=== PATIENT | female | born 1970 | race Two or more races ===

== ENCOUNTER → 2018-09-30 06:22 | Outpatient (CLI) | payer MEDICARE, MEDICAID, SELFPAY ==
[2018-09-30 06:44] LABS: Color, Urine Amber (Yellow); Glucose, Dipstick Normal (Normal); Ketone-Dipstick 5 mg/dl (Negative); Leukocyte Esterase-Dipstick 500 /ul (Negative); Nitrite-Dipstick Negative (Negative); Occult Blood-Urine 250 /ul (Negative); Protein-Dipstick 100 mg/dl (Negative); Specific Gravity, Urine 1.015 (1.002-1.030); Urine Clarity Cloudy (Clear); Urine Urobilinogen 4 mg/dl (Normal)
[2018-09-30 06:47] LABS: Anion Gap 9 (5-15); BUN 27 mg/dL (7-18); BUN/Creat Ratio 12.5 RATIO (10-20); Calcium,Total 8.3 mg/dL (8.5-10.1); Chloride 104 mmol/L (98-107); Creatinine, Serum 2.16 mg/dL (0.55-1.02); EST Glomerular Filtration Rate 26 mL/min (>60); Est Glom Filt Rate - Afr Amer 31 mL/min (>60); Glucose 169 mg/dL (74-106); Potassium 4.8 mmol/L (3.5-5.1); Sodium Level 140 mmol/L (136-145)
[2018-09-30 06:59] LABS: Absolute Lymphocyte Count 0.68 X10^3/uL (0.83-4.51); Absolute Neutrophil Count 4.7 X10^3/uL (2.0-7.7); Basophil# 0.01 X10^3/uL; Basophil% 0.2 % (0-1); Eosinophil# 0.03 X10^3/uL; Eosinophils% 0.5 % (0-5); Hematocrit 36.7 % (37-47); Hemoglobin 10.8 g/dL (12.0-15.0); Lymphocyte # 0.68 X10^3/ul (4.0); Lymphocyte % 11.3 % (19-41); Mean Corp Hgb Conc 29.4 g/dL (32-36); Mean Corpuscular Hgb 26.2 pg (27.0-32.0); Mean Corpuscular Volume 88.9 fL (81-99); Mean Platelet Vol. 12.2 fl (6.2-12.0); Monocyte# 0.57 X10^3/uL; Monocyte% 9.4 % (0-10); NRBC Flagged by Analyzer 0 % (0-5); Neutrophil # 4.72 X10^3/uL (2.7-7.7); Neutrophil % 78.1 % (47-70); Platelet Count 110 K/mm3 (150-450); RBC Distribution Width SD 55.5 fl (35.1-43.9); Red Blood Count 4.13 M/mm3 (4.2-5.4)
[2018-09-30 07:00] LABS: Urine Bilirubin Dipstick 1 mg/dL (Negative)
== END ==
DX: R41.82 Altered mental status, unspecified (principal)
CPT/HCPCS: 80048; 81002; 85025; 87077; 87086; 87088; 87186